=== PATIENT | female | born 2000 ===

== ENCOUNTER → 2023-02-21 | Outpatient (CLI) | payer OTHER ==
--- NOTE | 2023-02-23 08:39 | CA ---
Transthoracic Echo Report Name: Brenda Casillas Age: 22 Gender: F : 2000 Exam Date: 02/21/2023 14:46 Exam Location: [facility] Ht (in): 66 Wt (lb): 197 Ordering Physician: Sung Harrell MD Attending/Referring Phys: Sharri HARP Garnett Feeder Clarita Kiser [facility] Procedure CPT: Indications: R42 DIZZINESS AND GIDDINESS Q23.1 Cardiac Hx: sinus rhythm Technical Quality: Good Contrast 1: Total Dose (mL): Contrast 2: Total Dose (mL): MEASUREMENTS (Male / Female) Normal Values 2D ECHO LV Diastolic Diameter PLAX 4.5 cm 4.2 - 5.9 / 3.9 - 5.3 cm LV Systolic Diameter PLAX 2.9 cm IVS Diastolic Thickness 0.8 cm 0.6 - 1.0 / 0.6 - 0.9 cm LVPW Diastolic Thickness 0.7 cm 0.6 - 1.0 / 0.6 - 0.9 cm LV Relative Wall Thickness 0.3 RV Internal Dim ED PLAX 3.1 cm LVOT Diameter 2.0 cm Ascending Aorta Diameter 3.0 cm M-MODE Aortic Root Diameter MM 2.5 cm LA Systolic Diameter MM 3.9 cm LA Ao Ratio MM 1.5 AV Cusp Separation MM 1.9 cm DOPPLER AV Peak Velocity 123.2 cm/s AV Peak Gradient 6.1 mmHg AV Mean Velocity 96.2 cm/s AV Mean Gradient 4.0 mmHg AV Velocity Time Integral 24.6 cm LVOT Peak Velocity 96.9 cm/s LVOT Peak Gradient 3.8 mmHg LVOT Velocity Time Integral 20.8 cm LVOT Stroke Volume 64.1 cm??? LVOT Stroke Volume Index 32.3 ml/m??? LVOT Cardiac Index 2322.9 cm???/min???m??? AV Area Cont Eq vti 2.6 cm??? AV Area Cont Eq pk 2.4 cm??? Mitral E Point Velocity 53.5 cm/s Mitral A Point Velocity 60.7 cm/s Mitral E to A Ratio 0.9 MV Deceleration Time 211.4 ms LV E' Lateral Velocity 10.7 cm/s Mitral E to LV E' Lateral Ratio 5.0 LV E' Septal Velocity 6.0 cm/s Mitral E to LV E' Septal Ratio 9.0 Right Atrial Pressure 8.0 mmHg FINDINGS Left Ventricle Normal left ventricular size, wall thickness, systolic function with no obvious regional wall motion abnormalities. The ejection fraction is visually estimated at 60-65%. Right Ventricle Mild right ventricular dilatation. Right Atrium The right atrium is normal in size. Left Atrium The left atrium is normal in size. Mitral Valve Structurally normal mitral valve without significant stenosis or prolapse. There is no mitral regurgitation. Aortic Valve Trileaflet aortic valve. Structurally normal aortic valve without significant sclerosis or stenosis. There is no aortic regurgitation. Tricuspid Valve Structurally normal tricuspid valve without significant stenosis. No tricuspid regurgitation. Pulmonic Valve Structurally normal pulmonic valve without significant stenosis. There is mild pulmonic regurgitation. Pericardium Normal pericardium without effusion. Aorta Normal aortic root dimension. CONCLUSIONS Normal LV size, wall thickness and systolic function. Estimated LVEF 65% No obvious regional wall motion abnormality No significant diastolic dysfunction No significant valvular dysfunction Overall normal chamber sizes No prior echo to compare with Previewed by: Dr Cortez Cage (Electronically Signed) Final Date: 22 February 2023 10:09
== END | disposition home or self-care (01) ==
LOC: RADECHMAIN 14:41
PROVIDERS: ATTEND Family Medicine
DX: I37.1 Nonrheumatic pulmonary valve insufficiency (principal); Q23.1 Congenital insufficiency of aortic valve; R42 Dizziness and giddiness
CPT/HCPCS: 93306